=== PATIENT | female | born 1975 | race Caucasian/White ===

== ENCOUNTER → 2016-10-28 | Outpatient (CLI) | payer MEDICARE, MEDICAID ==
[~2016-10-28] MED LIST: DICL75TA PO; KEPP1TAB PO; MAGN1CAP PO; MONT10TA2 PO; NORT10CA2 PO; PENI500T PO; RANI150T PO; REGL10TA6 PO; TRAM50TA2 PO; VITATAB73 PO; ZOFR4TAB3 PO
[2016-10-28 12:23] LABS: ALBUMIN 3.7 GM/DL (3.2-5.2); ALBUMIN/GLOBULIN RATIO 1.19 (1.00-1.93); ALKALINE PHOSPHATASE 113 U/L (45-117); ALT/SGPT 44 U/L (12-78); ANION GAP 7 MEQ/L (8-16); AST/SGOT 19 U/L (15-37); BILIRUBIN,TOTAL 0.4 MG/DL (0.2-1.0); BLOOD UREA NITROGEN 15 MG/DL (7-18); CALCIUM LEVEL 8.5 MG/DL (8.5-10.1); CARBON DIOXIDE LEVEL 28 MEQ/L (21-32); CHLORIDE LEVEL 107 MEQ/L (98-107); CREATININE FOR GFR 0.67 MG/DL (0.55-1.02); GLOMERULAR FILTRATION RATE > 60.0 (>58); GLUCOSE, FASTING 87 MG/DL (70-105); POTASSIUM SERUM 3.7 MEQ/L (3.5-5.1); SODIUM LEVEL 142 MEQ/L (136-145); TOTAL PROTEIN 6.8 GM/DL (6.4-8.2)
== END ==
LOC: M LAB 11:21
PROVIDERS: ATTEND Orthopaedic Surgery
DX: Z92.29 Personal history of other drug therapy (principal)

== ENCOUNTER 2017-01-05 19:13 | Emergency (ER) | payer MEDICARE, MEDICAID ==
[~2017-01-05] VITALS: Ht 182.9 cm; Wt 113.6 kg
[2017-01-05 19:14] VITALS: BP 133/69
[2017-01-05] MEDS ORDERED: MONT10TA2 PO (19:27)
[2017-01-05] MEDS ORDERED: NORT10CA2 PO (19:27)
[2017-01-05] MEDS ORDERED: KEPP1TAB PO (19:27)
[2017-01-05] MEDS ORDERED: MAGN1CAP PO (19:27)
[2017-01-05] MEDS ORDERED: DICL75TA PO (19:27)
[2017-01-05] MEDS ORDERED: RANI150T PO (19:27)
[2017-01-05] MEDS ORDERED: VITATAB73 PO (19:27)
[2017-01-05] MEDS ORDERED: PENICILLIN V POTASSIUM 500 MG TAB PO ONE (21:30)
[2017-01-05] MEDS ORDERED: traMADol 50 MG TAB PO ONE (21:30)
[2017-01-05] MEDS ORDERED: PENI500T PO (21:33)
[2017-01-05] MEDS ORDERED: TRAM50TA2 PO (21:33)
[2017-02-27] MEDS ORDERED: ZOFR4TAB3 PO (23:35)
== END 2017-01-05 21:42 | disposition home or self-care (01) ==
LOC: M ED 19:13
DX: R59.1 Generalized enlarged lymph nodes (principal); Z87.891 Personal history of nicotine dependence; Z79.899 Other long term (current) drug therapy

== ENCOUNTER 2017-01-08 10:29 | Emergency (ER) | payer MEDICARE, MEDICAID ==
[~2017-01-08] VITALS: Ht 182.9 cm; Wt 123.4 kg
[~2017-01-08 10:29] MED LIST changes: -REGL10TA6 PO; -ZOFR4TAB3 PO
[2017-01-08] MEDS ORDERED: ONDANSETRON 4 MG ORAL DISINTEGRATING TAB (S0181) PO ONE (11:00)
[2017-01-08 11:26] LABS: BASO % 0.2 % (0.0-1.0); EOS # 0.1 K/mm3 (0.0-0.50); EOS % 1.5 % (0.0-3.0); LARGE UNSTAINED CELL # 0.1 K/mm3 (0.0-0.4); LARGE UNSTAINED CELL % 2.3 % (0.0-4.0); LYMPH # 1.4 K/mm3 (1.5-4.5); LYMPH % 24.9 % (24.0-44.0); MEAN CORPUSCULAR HEMOGLOBIN 30.3 pg (27.0-33.0); MEAN CORPUSCULAR HGB CONC 34.5 g/dl (32.0-36.5); MEAN CORPUSCULAR VOLUME 87.8 fl (80.0-96.0); MONO # 0.3 K/mm3 (0.0-0.8); NEUTROPHILS # 3.8 K/mm3 (1.8-7.7); NEUTROPHILS % 66.1 % (36.0-66.0); PLATELET COUNT, AUTOMATED 262 k/mm3 (150-450); RED CELL DISTRIBUTION WIDTH 12.6 % (11.5-14.5); WHITE BLOOD COUNT 5.8 K/mm3 (4.0-10.0)
[2017-01-08 11:54] LABS: ANION GAP 6 MEQ/L (8-16); BLOOD UREA NITROGEN 20 MG/DL (7-18); CALCIUM LEVEL 8.6 MG/DL (8.5-10.1); CARBON DIOXIDE LEVEL 28 MEQ/L (21-32); CHLORIDE LEVEL 107 MEQ/L (98-107); CREATININE FOR GFR 0.61 MG/DL (0.55-1.02); GLOMERULAR FILTRATION RATE > 60.0 (>58); GLUCOSE, FASTING 83 MG/DL (70-105); MAGNESIUM LEVEL 2.1 MG/DL (1.8-2.4); POTASSIUM SERUM 3.8 MEQ/L (3.5-5.1); SODIUM LEVEL 141 MEQ/L (136-145)
[2017-01-08] MEDS ORDERED: ZOFR4TAB3 PO (12:20)
[2017-01-08 12:31] VITALS: BP 113/72
[2017-02-27] MEDS ORDERED: ZOFR4TAB3 PO (23:35)
== END 2017-01-08 12:32 | disposition home or self-care (01) ==
LOC: M ED 10:29
DX: J02.9 Acute pharyngitis, unspecified (principal); R11.0 Nausea; Z79.899 Other long term (current) drug therapy; Z91.030 Bee allergy status; Z88.6 Allergy status to analgesic agent

== ENCOUNTER 2017-02-07 20:05 | Emergency (ER) | payer MEDICARE, MEDICAID ==
[~2017-02-07] VITALS: Ht 167.6 cm; Wt 255.0 kg
[~2017-02-07 20:05] MED LIST changes: +ZOFR4TAB3 PO
[2017-02-07] MEDS ORDERED: diphenhydrAMINE INJ 50MG/ML VIAL (J1200) IV STA (22:20)
[2017-02-07] MEDS ORDERED: METOCLOPRAMIDE INJ 10MG/2ML VIAL (J2765) IV ONE (22:30)
[2017-02-07] MEDS ORDERED: dexameTHASONE 20 MG/5 ML VIAL (J1100) IV ONE (22:30)
[2017-02-07] MEDS ORDERED: NS 1,000 ML IV ONE (22:30)
[2017-02-07] MEDS ORDERED: REGL10TA6 PO (23:40)
[2017-02-07 23:51] VITALS: BP 117/60
[2017-02-27] MEDS ORDERED: ZOFR4TAB3 PO (23:35)
== END 2017-02-07 23:58 | disposition home or self-care (01) ==
LOC: M ED 20:05
DX: G43.909 Migraine, unspecified, not intractable, without status migrainosus (principal); J45.909 Unspecified asthma, uncomplicated; F17.210 Nicotine dependence, cigarettes, uncomplicated; Z79.899 Other long term (current) drug therapy; Z88.8 Allergy status to other drugs, medicaments and biological substances; Z88.5 Allergy status to narcotic agent; Z91.030 Bee allergy status
CPT/HCPCS: 96374; 96375; 99283; J1100; J1200; J2765

== ENCOUNTER → 2017-03-17 | Outpatient (CLI) | payer MEDICARE, MEDICAID ==
[~2017-03-17] MED LIST changes: +REGL10TA6 PO
--- NOTE | 2017-03-17 08:32 | REP ---
Clinical: Right upper quadrant abdominal pain. Technique: Mitchell scale ultrasound using curved array transducer. Findings: The liver and pancreas are normal in contour, size, and echogenicity without focal hepatic or pancreatic lesions identified. The patient is status post cholecystectomy. Compensatory dilatation of the common bile duct measures 9.5 mm without evidence for intrahepatic biliary ductal dilatation. The right kidney is normal in reniform shape without hydronephrosis and measures 12.9 x 6.0 x 4.5 cm. No ascites. Visualized portions of the abdominal aorta normal. Impression: Prior cholecystectomy. No significant biliary ductal dilatation. Right kidney, liver and pancreas are normal. Signed by Faustino Mcgregor MD 03/17/2017 08:23 A
== END ==
LOC: M RAD 06:40
PROVIDERS: ATTEND Internal Medicine
DX: R10.9 Unspecified abdominal pain (principal)

== ENCOUNTER → 2017-05-29 | Outpatient (CLI) | payer MEDICARE, MEDICAID | LOC: M RAD 15:36 | DX: N83.201 Unspecified ovarian cyst, right side (principal); N94.6 Dysmenorrhea, unspecified | CPT/HCPCS: 76856 ==

== ENCOUNTER 2017-06-02 16:43 | Emergency (ER) | payer MEDICARE, MEDICAID ==
[2017-06-02] MEDS: IBUPROFEN 600 MG TAB PO (22:08)
[2017-06-02] MEDS: METHOCARBAMOL 500 MG TAB PO (22:08)
== END 2017-06-02 22:09 | disposition home or self-care (01) ==
LOC: M ED 16:43
DX: M62.830 Muscle spasm of back (principal); K21.9 Gastro-esophageal reflux disease without esophagitis; Z88.8 Allergy status to other drugs, medicaments and biological substances; Z88.5 Allergy status to narcotic agent; Z91.030 Bee allergy status; Z86.69 Personal history of other diseases of the nervous system and sense organs; Z98.890 Other specified postprocedural states
CPT/HCPCS: 99283

== ENCOUNTER 2017-07-28 15:53 | Emergency (ER) | payer MEDICARE, MEDICAID ==
[2017-07-28] MEDS: IBUPROFEN 600 MG TAB PO (19:10)
== END 2017-07-28 19:11 | disposition home or self-care (01) ==
LOC: M ED 15:53
DX: H65.03 Acute serous otitis media, bilateral (principal); G43.909 Migraine, unspecified, not intractable, without status migrainosus; J45.909 Unspecified asthma, uncomplicated; K21.9 Gastro-esophageal reflux disease without esophagitis; Z79.899 Other long term (current) drug therapy; Z91.013 Allergy to seafood; Z88.6 Allergy status to analgesic agent; Z88.5 Allergy status to narcotic agent
CPT/HCPCS: 99283

== ENCOUNTER 2017-08-28 07:58 | Day surgery (SDC) | payer MEDICARE, MEDICAID ==
[~2017-08-28 07:58] MED LIST changes: -DICL75TA PO; -KEPP1TAB PO; -MAGN1CAP PO; -MONT10TA2 PO; -NORT10CA2 PO; -PENI500T PO; +PROPOFOL 200 MG/20 ML VIAL As Ordered; -RANI150T PO; -REGL10TA6 PO; -TRAM50TA2 PO; -VITATAB73 PO; -ZOFR4TAB3 PO
[2017-08-28] MEDS: NS 1,000 ML IV (08:15)
[2017-08-28] MEDS ORDERED: PROPOFOL 200 MG/20 ML VIAL As Ordered (09:05)
== END 2017-08-28 09:52 | disposition home or self-care (01) ==
LOC: M OPP 07:58
DX: R12 Heartburn (principal); K22.8 Other specified diseases of esophagus; K44.9 Diaphragmatic hernia without obstruction or gangrene; K31.89 Other diseases of stomach and duodenum; K21.9 Gastro-esophageal reflux disease without esophagitis; G43.909 Migraine, unspecified, not intractable, without status migrainosus; G40.909 Epilepsy, unspecified, not intractable, without status epilepticus; J45.909 Unspecified asthma, uncomplicated; Z88.8 Allergy status to other drugs, medicaments and biological substances; Z91.030 Bee allergy status; Z79.899 Other long term (current) drug therapy; Z87.891 Personal history of nicotine dependence; Z80.49 Family history of malignant neoplasm of other genital organs
CPT/HCPCS: 43239

== ENCOUNTER → 2017-09-15 | Outpatient (CLI) | payer MEDICARE, MEDICAID | LOC: M RAD 17:48 | DX: N83.201 Unspecified ovarian cyst, right side (principal); R93.8 Abnormal findings on diagnostic imaging of other specified body structures; N85.00 Endometrial hyperplasia, unspecified | CPT/HCPCS: 76856 ==

== ENCOUNTER → 2017-09-15 | Outpatient (CLI) | payer MEDICARE, MEDICAID ==
[2017-09-15 13:32] LABS: ALBUMIN 3.7 GM/DL (3.2-5.2); ALBUMIN/GLOBULIN RATIO 1.09 (1.00-1.93); ALKALINE PHOSPHATASE 96 U/L (45-117); ALT/SGPT 37 U/L (12-78); ANION GAP 6 MEQ/L (8-16); AST/SGOT 21 U/L (7-37); BILIRUBIN,DIRECT 0.1 MG/DL (0.0-0.2); BILIRUBIN,TOTAL 0.3 MG/DL (0.2-1.0); BLOOD UREA NITROGEN 13 MG/DL (7-18); CALCIUM LEVEL 8.6 MG/DL (8.5-10.1); CARBON DIOXIDE LEVEL 28 MEQ/L (21-32); CHLORIDE LEVEL 108 MEQ/L (98-107); CREATININE FOR GFR 0.74 MG/DL (0.55-1.30); GLOMERULAR FILTRATION RATE > 60.0 (>58); GLUCOSE, FASTING 86 MG/DL (70-100); POTASSIUM SERUM 4.1 MEQ/L (3.5-5.1); SODIUM LEVEL 142 MEQ/L (136-145); TOTAL PROTEIN 7.1 GM/DL (6.4-8.2)
== END ==
LOC: M LAB 11:46
DX: Z92.29 Personal history of other drug therapy (principal)
CPT/HCPCS: 80076

== ENCOUNTER 2018-01-13 14:19 | Emergency (ER) | payer MEDICARE, MEDICAID ==
[2018-01-13] MEDS: ACETAMINOPHEN 325 MG TAB PO (16:18)
[2018-01-13] MEDS: AZITHROMYCIN 250 MG TAB PO (16:18)
== END 2018-01-13 16:36 | disposition home or self-care (01) ==
LOC: M ED 14:19
DX: J20.9 Acute bronchitis, unspecified (principal); J06.9 Acute upper respiratory infection, unspecified; J45.909 Unspecified asthma, uncomplicated; K21.9 Gastro-esophageal reflux disease without esophagitis; Z88.8 Allergy status to other drugs, medicaments and biological substances; Z88.5 Allergy status to narcotic agent; Z91.030 Bee allergy status
CPT/HCPCS: 99283

== ENCOUNTER → 2018-01-27 | Outpatient (CLI) | payer MEDICARE, MEDICAID | LOC: M RAD 13:40 | DX: N83.01 Follicular cyst of right ovary (principal) | CPT/HCPCS: 76856 ==

== ENCOUNTER 2018-02-16 17:54 | Emergency (ER) | payer MEDICARE, MEDICAID ==
[2018-02-16 15:46] LABS: BASO % 0.3 % (0.0-1.0); EOS # 0.1 10^3/uL (0.0-0.50); EOS % 0.8 % (0.0-3.0); HEMATOCRIT 34.3 % (36.0-47.0); HEMOGLOBIN 11.5 g/dl (12.0-15.5); IMMATURE GRANULOCYTE % 0.2 % (0-3.0); LYMPH # 2.1 10^3/uL (1.5-4.5); LYMPH % 23.9 % (24.0-44.0); MEAN CORPUSCULAR HEMOGLOBIN 29.4 pg (27.0-33.0); MEAN CORPUSCULAR HGB CONC 33.5 g/dl (32.0-36.5); MEAN CORPUSCULAR VOLUME 87.7 fl (80.0-96.0); MONO # 0.4 10^3/uL (0.0-0.8); MONO % 4.2 % (0.0-5.0); NEUTROPHILS # 6.1 10^3/uL (1.8-7.7); NEUTROPHILS % 70.6 % (36.0-66.0); PLATELET COUNT, AUTOMATED 308 10^3/uL (150-450); RED BLOOD COUNT 3.91 10^6/uL (4.00-5.40); WHITE BLOOD COUNT 8.7 10^3/uL (4.0-10.0)
[2018-02-16 16:25] LABS: CPK CREATINE PHOSPHOKINASE 84 U/L (26-192)
[2018-02-16 16:26] LABS: BLOOD UREA NITROGEN 17 MG/DL (7-18); CALCIUM LEVEL 9.1 MG/DL (8.5-10.1); CARBON DIOXIDE LEVEL 25 MEQ/L (21-32); CHLORIDE LEVEL 108 MEQ/L (98-107); CK-MB VALUE MASS < 1.0 NG/ML (<3.6); CREATININE FOR GFR 0.94 MG/DL (0.55-1.30); GLOMERULAR FILTRATION RATE > 60.0 (>58); GLUCOSE, FASTING 116 MG/DL (70-100); POTASSIUM SERUM 3.8 MEQ/L (3.5-5.1); SODIUM LEVEL 142 MEQ/L (136-145); TROPONIN I < 0.02 NG/ML (< 0.10)
[2018-02-16 16:27] LABS: ANION GAP 9 MEQ/L (8-16)
[2018-02-16 16:34] LABS: D-DIMER QUANT 1114.2 ng/ml (<500)
[2018-02-16] MEDS: NORCO, ANEXSIA 5/325MG TABLET (HYDROcodone/ACETAMINOPHEN) PO ×2 (17:07)
[~2018-02-16 17:54] MED LIST changes: +ISOVUE-370 76% 100ML VIAL (Q9967) As Ordered; -PROPOFOL 200 MG/20 ML VIAL As Ordered
== END 2018-02-16 18:05 | disposition home or self-care (01) ==
LOC: M ED 17:54
DX: R07.89 Other chest pain (principal)
CPT/HCPCS: Q9967

== ENCOUNTER 2018-03-27 16:28 | Emergency (ER) | payer MEDICARE, MEDICAID | END 2018-03-27 18:32 | disposition home or self-care (01) | LOC: M ED 16:28 | DX: J20.8 Acute bronchitis due to other specified organisms (principal); J45.909 Unspecified asthma, uncomplicated; K21.9 Gastro-esophageal reflux disease without esophagitis; G43.909 Migraine, unspecified, not intractable, without status migrainosus; Z91.030 Bee allergy status; Z88.5 Allergy status to narcotic agent; Z88.8 Allergy status to other drugs, medicaments and biological substances; Z79.899 Other long term (current) drug therapy | CPT/HCPCS: 87880 ==

== ENCOUNTER → 2018-09-08 | Outpatient (CLI) | payer MEDICARE, MEDICAID ==
[~2018-09-08] MED LIST changes: +CLAR1TAB2 PO; +DICL75TA PO; +ETHY1TAB; +IBUP-1022 PO; -ISOVUE-370 76% 100ML VIAL (Q9967) As Ordered; +KEPP1TAB PO; +MAGN1CAP PO; +MONT10TA2 PO; +NASA10TA2 PO; +NORT10CA2 PO; +PENI500T PO; +RANI150T PO; +REGL10TA6 PO; +ROBA500T PO; +TESS100C PO; +TRAM50TA2 PO; +VENTAER INH; +VITATAB73 PO; +ZITHTAB PO; +ZOFR4TAB14 PO
[2018-09-08 13:13] LABS: ALBUMIN 3.7 GM/DL (3.2-5.2); ALT/SGPT 27 U/L (12-78); BILIRUBIN,TOTAL 0.5 MG/DL (0.2-1.0); BLOOD UREA NITROGEN 16 MG/DL (7-18); CARBON DIOXIDE LEVEL 28 MEQ/L (21-32); CHLORIDE LEVEL 108 MEQ/L (98-107); GLOMERULAR FILTRATION RATE > 60.0 (>58); GLUCOSE, FASTING 90 MG/DL (70-100); POTASSIUM SERUM 3.9 MEQ/L (3.5-5.1); SODIUM LEVEL 141 MEQ/L (136-145); TOTAL PROTEIN 6.5 GM/DL (6.4-8.2)
== END ==
LOC: M LAB 12:03
PROVIDERS: ATTEND Nurse Practitioner Adult Health
DX: Z79.899 Other long term (current) drug therapy (principal); M17.0 Bilateral primary osteoarthritis of knee

== ENCOUNTER 2018-10-16 11:55 | Emergency (ER) | payer MEDICARE, MEDICAID ==
[~2018-10-16] VITALS: Ht 182.9 cm; Wt 102.7 kg
[2018-10-16] MEDS ORDERED: VITA500C24 PO (12:06)
[2018-10-16] MEDS ORDERED: METOCLOPRAMIDE INJ 10MG/2ML VIAL (J2765) IV ONE (13:00)
[2018-10-16] MEDS ORDERED: NS 1,000 ML IV ONE (13:00)
[2018-10-16] MEDS ORDERED: diphenhydrAMINE INJ 50MG/ML VIAL (J1200) IV ONE (13:00)
[2018-10-16] MEDS ORDERED: ACETAMINOPHEN 500 MG TAB PO ONE (13:00)
--- NOTE | 2018-10-16 14:38 | REP ---
CT of the brain without IV contrast: Comparison is 02/27/2017. Studies performed for migraine headache. There is no hemorrhage. There is no edema, mass effect or midline shift. Cortical stripe is unremarkable. Ventricles are normal size and midline. There is mucosal thickening and a small air-fluid level in the right sphenoid sinus. There is a small air-fluid level in the left sphenoid sinus. This is compatible with sinusitis. The visualized sinuses are otherwise unremarkable. Impression: There are findings compatible with sphenoid sinusitis. Otherwise, negative CT of the brain. Electronically Signed by Francois Rodríguez MD 10/16/2018 02:30 P
[2018-10-16] MEDS ORDERED: AUGM875T28 PO (15:16)
[2018-10-16 15:25] VITALS: BP 124/72
== END 2018-10-16 15:26 | disposition home or self-care (01) ==
LOC: M ED 11:55
DX: G43.909 Migraine, unspecified, not intractable, without status migrainosus (principal); J32.3 Chronic sphenoidal sinusitis; J45.909 Unspecified asthma, uncomplicated; G40.909 Epilepsy, unspecified, not intractable, without status epilepticus; I49.9 Cardiac arrhythmia, unspecified; K21.9 Gastro-esophageal reflux disease without esophagitis; Z79.899 Other long term (current) drug therapy; Z88.1 Allergy status to other antibiotic agents; Z88.5 Allergy status to narcotic agent; Z88.8 Allergy status to other drugs, medicaments and biological substances; Z91.030 Bee allergy status
CPT/HCPCS: 70450; 80180; 84702; 96361; 96374; 96375; 99284; J1200; J2765

== ENCOUNTER → 2018-11-03 | Outpatient (CLI) | payer MEDICARE, MEDICAID ==
[~2018-11-03] MED LIST changes: +AUGM875T28 PO; +VITA500C24 PO
--- NOTE | 2018-11-03 10:02 | REP ---
RIGHT UPPER QUADRANT SONOGRAPHY: HISTORY: Elevated LFTs. FINDINGS: Scanning through the right upper quadrant of the abdomen shows no focal liver lesion. Common bile duct is normal post cholecystectomy measured at 0.6 cm. There is no evidence of ascites. No pancreatic abnormality is seen. No right renal abnormality is noted. The right kidney measures 12.4 x 5.6 x 3.8 cm. IMPRESSION: Unremarkable right upper quadrant sonography post cholecystectomy. Electronically Signed by Giovany Woodward MD 11/03/2018 10:43 A
== END ==
LOC: M RAD 07:29
DX: R74.0 Nonspecific elevation of levels of transaminase and lactic acid dehydrogenase [LDH] (principal)

== ENCOUNTER 2019-01-15 15:51 | Emergency (ER) | payer MEDICARE, MEDICAID ==
[~2019-01-15] VITALS: Ht 182.9 cm; Wt 102.9 kg
[2019-01-15] MEDS ORDERED: NS 1,000 ML IV ONE (16:30)
[2019-01-15] MEDS ORDERED: dexameTHASONE 20 MG/5 ML VIAL (J1100) IV ONE (16:30)
[2019-01-15] MEDS ORDERED: ACETAMINOPHEN 325 MG TAB PO ONE (16:30)
[2019-01-15] MEDS ORDERED: diphenhydrAMINE INJ 50MG/ML VIAL (J1200) IV ONE (16:30)
[2019-01-15] MEDS ORDERED: SUMA50TA2 (17:16)
[2019-01-15] MEDS ORDERED: PROP20TA72 (17:16)
[2019-01-15] MEDS ORDERED: KELN1TAB (17:16)
[2019-01-15] MEDS ORDERED: DICL75TA (17:16)
[2019-01-15] MEDS ORDERED: VALPROATE SOD INJ 1,000 MG in D5W 50 ML IV ONE (18:15)
[2019-01-15 19:23] VITALS: BP 116/62
== END 2019-01-15 19:39 | disposition home or self-care (01) ==
LOC: M ED 15:51
DX: G43.811 Other migraine, intractable, with status migrainosus (principal); J45.909 Unspecified asthma, uncomplicated; R56.9 Unspecified convulsions; K21.9 Gastro-esophageal reflux disease without esophagitis; Z79.899 Other long term (current) drug therapy; Z79.3 Long term (current) use of hormonal contraceptives; Z88.8 Allergy status to other drugs, medicaments and biological substances; Z88.1 Allergy status to other antibiotic agents; Z88.5 Allergy status to narcotic agent; Z91.030 Bee allergy status
CPT/HCPCS: 96361; 96374; 96375; 99284; J1100; J1200

== ENCOUNTER 2019-04-21 15:35 | Emergency (ER) | payer MEDICARE, MEDICAID ==
[~2019-04-21] VITALS: Ht 182.9 cm; Wt 94.5 kg
[~2019-04-21 15:35] MED LIST changes: -CIPR-249 PO
[2019-04-21] MEDS ORDERED: CIPR-249 PO (17:21)
[2019-04-21 17:55] VITALS: BP 131/69
== END 2019-04-21 17:56 | disposition home or self-care (01) ==
LOC: M ED 15:35
DX: N39.0 Urinary tract infection, site not specified (principal); K21.9 Gastro-esophageal reflux disease without esophagitis; J45.909 Unspecified asthma, uncomplicated; Z79.899 Other long term (current) drug therapy; Z88.1 Allergy status to other antibiotic agents; Z88.8 Allergy status to other drugs, medicaments and biological substances; Z91.030 Bee allergy status

== ENCOUNTER → 2019-04-21 | Outpatient (CLI) | payer MEDICARE, MEDICAID ==
[~2019-04-21] MED LIST changes: +CIPR-249 PO; +DICL75TA; +KELN1TAB; +PROP20TA72; +SUMA50TA2
== END ==
LOC: M LAB 14:57
PROVIDERS: ATTEND Psychiatry & Neurology Neurology
DX: G40.309 Generalized idiopathic epilepsy and epileptic syndromes, not intractable, without status epilepticus (principal)

== ENCOUNTER 2019-05-01 12:06 | Emergency (ER) | payer MEDICARE, MEDICAID ==
[~2019-05-01] VITALS: Ht 182.9 cm; Wt 105.9 kg
[~2019-05-01 12:06] MED LIST changes: +CIPR-249 PO
[2019-05-01 12:51] LABS: IONIZED CALCIUM 4.6 MG/DL (4.5-5.3)
[2019-05-01 12:58] LABS: BASO # 0.1 10^3/uL (0.0-0.2); BASO % 0.8 % (0.0-1.0); EOS # 0.1 10^3/uL (0.0-0.5); EOS % 1.4 % (0.0-3.0); HEMATOCRIT 31.2 % (36.0-47.0); HEMOGLOBIN 10.5 g/dl (12.0-15.5); LYMPH # 1.3 10^3/uL (1.5-5.0); MEAN CORPUSCULAR HEMOGLOBIN 29.9 pg (27.0-33.0); MEAN CORPUSCULAR HGB CONC 33.7 g/dl (32.0-36.5); MEAN CORPUSCULAR VOLUME 88.9 fl (80.0-96.0); MONO # 0.3 10^3/uL (0.0-0.8); MONO % 5.3 % (0.0-5.0); NEUTROPHILS # 4.7 10^3/uL (1.5-8.5); NEUTROPHILS % 72.3 % (36.0-66.0); PLATELET COUNT, AUTOMATED 242 10^3/uL (150-450); RED BLOOD COUNT 3.51 10^6/uL (4.00-5.40); WHITE BLOOD COUNT 6.5 10^3/uL (4.0-10.0)
[2019-05-01] MEDS ORDERED: ADACEL/BOOSTRIX VACCINE (DIPHTH/PERTUSS/ACELL/TETANUS)0.5ML SYR (90715) IM ONE (13:15)
[2019-05-01 13:20] LABS: ALBUMIN 3.4 GM/DL (3.2-5.2); ALT/SGPT 28 U/L (12-78); BILIRUBIN,DIRECT 0.1 MG/DL (0.0-0.2); BILIRUBIN,TOTAL 0.3 MG/DL (0.2-1.0); BLOOD UREA NITROGEN 19 MG/DL (7-18); CALCIUM LEVEL 8.7 MG/DL (8.5-10.1); CARBON DIOXIDE LEVEL 23 MEQ/L (21-32); CHLORIDE LEVEL 107 MEQ/L (98-107); CREATININE FOR GFR 0.81 MG/DL (0.55-1.30); GLOMERULAR FILTRATION RATE > 60.0 (>58); GLUCOSE, FASTING 77 MG/DL (70-100); MAGNESIUM LEVEL 2.2 MG/DL (1.8-2.4); PHOSPHORUS LEVEL 2.6 MG/DL (2.5-4.9); POTASSIUM SERUM 4.4 MEQ/L (3.5-5.1); SODIUM LEVEL 139 MEQ/L (136-145); TOTAL PROTEIN 6.5 GM/DL (6.4-8.2)
--- NOTE | 2019-05-01 13:46 | REP ---
CT BRAIN WITHOUT CONTRAST: HISTORY: Trauma. Seizure. No comparison study. FINDINGS: Preliminary digital inspector motor vehicles radiograph is unremarkable. The maxilla is edentulous. No skull fracture is visible on bone window images. Visualized paranasal sinuses are clear. There is a left frontal scalp hematoma. No skull fracture. There is no evidence of intracranial hemorrhage. Lateral, third, fourth ventricles are normal in size and position. Mitchell-white differentiation pattern is intact. IMPRESSION: Left frontal scalp hematoma. No skull fracture or intracranial injury. Electronically Signed by Giovany Woodward MD 05/01/2019 02:01 P
--- NOTE | 2019-05-01 13:47 | REP ---
CHEST X-RAY: Two views. HISTORY: Syncope versus seizure. COMPARISON CHEST X-RAY: February 16, 2018. FINDINGS: EKG monitoring electrodes overlie the chest. The lungs are well inflated and clear. Pleural angles are sharp. Heart size is normal. Pulmonary vasculature is not increased. No significant bony abnormality. IMPRESSION: Negative chest radiographs. Electronically Signed by Giovany Woodward MD 05/01/2019 02:01 P
--- NOTE | 2019-05-01 13:47 | REP ---
CT STUDY OF THE CERVICAL SPINE WITHOUT CONTRAST: HISTORY: Trauma, seizure. TECHNIQUE: Helical scanning is acquired and overlapping 2 mm high resolution axial images were generated and reviewed at bone and soft tissue window settings. Coronal and sagittal multiplanar re-formations images are generated. CT FINDINGS: C3-4 through C6-7 disc levels. There is no evidence of cervical spine element fracture. No skull base fracture is seen. Cervical vertebral body heights are preserved. Alignment is normal. Facet joints are normally aligned bilaterally at each cervical level on multiplanar re-formations images. There is no evidence of intraspinal or paraspinal hematoma. No extra vertebral abnormality is seen. IMPRESSION: Mild degenerative spondylosis changes. Otherwise negative CT study of the cervical spine without contrast. No fracture seen. Unreviewed
[2019-05-01] MEDS ORDERED: NS 1,000 ML IV SCH (13:51)
[2019-05-01 15:02] LABS: AMPHETAMINES LEVEL URINE NEGATIVE (NEGATIVE); BARBITURATES URINE NEGATIVE (NEGATIVE); BENZODIAZEPINES URINE NEGATIVE (NEGATIVE); CANNABINOIDS URINE NEGATIVE (NEGATIVE); COCAINE METABOLITE URINE NEGATIVE (NEGATIVE); METHADONE URINE NEGATIVE (NEGATIVE); OPIATES URINE NEGATIVE (NEGATIVE); PHENCYCLIDINE URINE NEGATIVE (NEGATIVE)
[2019-05-01] MEDS ORDERED: KEFL500C17 PO (17:10)
[2019-05-01] MEDS ORDERED: CEPHALEXIN 500 MG CAP PO ONE (17:15)
[2019-05-01 17:41] VITALS: BP 121/61
--- NOTE | 2019-05-01 21:20 | ECGEPIP ---
[facility] - ED Test Date: 2019-05-01 Pat Name: EVA KEYES Department: Room: - Gender: Female [employer] Operator: YULY : 1975 Requested By: MARY Gordon Order Number: [id number] Reading MD: Austen Ceja Measurements Intervals [place] Rate: 67 P: -2 OK: 154 QRS: 9 QRSD: 98 T: 5 QT: 381 QTc: 404 Interpretive Statements SINUS RHYTHM NSTTW ABNORMALITIES SIMILAR TO 02/16/18 Electronically Signed on 05-01-2019 21:20:08 EST by Austen Ceja
== END 2019-05-01 17:46 | disposition home or self-care (01) ==
LOC: EDBD 12:06 → M ED 12:06
DX: G40.909 Epilepsy, unspecified, not intractable, without status epilepticus (principal); S00.83XA Contusion of other part of head, initial encounter; X50.1XXA Overexertion from prolonged static or awkward postures, initial encounter; Y92.89 Other specified places as the place of occurrence of the external cause; N39.0 Urinary tract infection, site not specified; K21.9 Gastro-esophageal reflux disease without esophagitis; G43.909 Migraine, unspecified, not intractable, without status migrainosus; Z79.899 Other long term (current) drug therapy; Z88.8 Allergy status to other drugs, medicaments and biological substances; Z88.1 Allergy status to other antibiotic agents; Z88.5 Allergy status to narcotic agent; Z91.030 Bee allergy status; Z23 Encounter for immunization

== ENCOUNTER 2020-03-18 17:26 | Inpatient (IN) | payer MEDICARE, MEDICAID ==
[~2020-03-18] VITALS: Ht 182.9 cm; Wt 121.7 kg
[~2020-03-18 17:26] MED LIST changes: +KEFL500C17 PO; -MONT10TA2 PO; +MONT10TA4 PO
[2020-03-18] MEDS ORDERED: NS 1,000 ML IV ONE (18:15)
[2020-03-18] MEDS ORDERED: ESOM40CA35 PO (18:27)
[2020-03-18] MEDS ORDERED: CVS5000S2 PO (18:27)
[2020-03-18] MEDS ORDERED: KELN1TAB PO (18:27)
[2020-03-18] MEDS ORDERED: RA M500C PO (18:27)
[2020-03-18] MEDS ORDERED: DICL50TAB PO (18:27)
[2020-03-18] MEDS ORDERED: PROP20TA72 PO (18:27)
[2020-03-18] MEDS ORDERED: TRAZ-252 PO (18:27)
[2020-03-18] MEDS ORDERED: ALBU8.5H PO (18:27)
[2020-03-18] MEDS ORDERED: MONT10TA4 PO (18:27)
[2020-03-18] MEDS ORDERED: KEPP1TAB PO (18:27)
[2020-03-18] MEDS ORDERED: VITA-158 PO (18:27)
[2020-03-18 18:31] LABS: BASO % 0.4 % (0.0-1.0); EOS # 0.1 10^3/uL (0.0-0.5); EOS % 1.3 % (0.0-3.0); HEMATOCRIT 34.9 % (36.0-47.0); HEMOGLOBIN 11.1 g/dl (12.0-15.5); LYMPH # 1.5 10^3/uL (1.5-5.0); LYMPH % 19.4 % (24.0-44.0); MEAN CORPUSCULAR HEMOGLOBIN 28.8 pg (27.0-33.0); MEAN CORPUSCULAR HGB CONC 31.8 g/dl (32.0-36.5); MEAN CORPUSCULAR VOLUME 90.6 fl (80.0-96.0); MONO # 0.4 10^3/uL (0.0-0.8); MONO % 4.5 % (0.0-5.0); NEUTROPHILS # 5.7 10^3/uL (1.5-8.5); NEUTROPHILS % 74.1 % (36.0-66.0); PLATELET COUNT, AUTOMATED 282 10^3/uL (150-450); RED BLOOD COUNT 3.85 10^6/uL (4.00-5.40); WHITE BLOOD COUNT 7.7 10^3/uL (4.0-10.0)
[2020-03-18 18:56] LABS: HCG, SERUM QUALITATIVE NEGATIVE (NEGATIVE)
[2020-03-18 19:00] LABS: ACETAMINOPHEN LEVEL < 2.0 UG/ML (10.0-30.0); BLOOD UREA NITROGEN 18 MG/DL (7-18); CALCIUM LEVEL 8.7 MG/DL (8.5-10.1); CARBON DIOXIDE LEVEL 27 MEQ/L (21-32); CHLORIDE LEVEL 108 MEQ/L (98-107); CK-MB VALUE MASS < 1.0 NG/ML (<3.6); CPK CREATINE PHOSPHOKINASE 68 U/L (26-192); CREATININE FOR GFR 0.94 MG/DL (0.55-1.30); ETHYL ALCOHOL (ETHANOL) < 0.003 % (0.000-0.010); GLOMERULAR FILTRATION RATE > 60.0 (>58); GLUCOSE, FASTING 101 MG/DL (70-100); MAGNESIUM LEVEL 2.2 MG/DL (1.8-2.4); MB/CK RELATIVE INDEX 1.47 (< OR =4); POTASSIUM SERUM 3.9 MEQ/L (3.5-5.1); SALICYLATE LEVEL 1.8 MG/DL (5.0-30.0); SODIUM LEVEL 140 MEQ/L (136-145); TROPONIN I < 0.02 NG/ML (< 0.10)
--- NOTE | 2020-03-18 20:09 | ECGEPIP ---
[facility] - ED Test Date: 2020-03-18 Pat Name: EVA KEYES Department: Room: - Gender: Female Supervisor Rides: julian : 1975 Requested By: KAROLINE GRIFFITH Order Number: [id number] Reading MD: James King Measurements Intervals [place] Rate: 73 P: 25 HI: 171 QRS: 12 QRSD: 105 T: 5 QT: 388 QTc: 428 Interpretive Statements SINUS RHYTHM NONSPECIFIC ST T WAVE CHANGES CW 05/01/[address] T WAVE CHANGES Electronically Signed on 03-18-2020 20:08:44 EST by James King
[2020-03-18 20:14] LABS: AMPHETAMINES LEVEL URINE NEGATIVE (NEGATIVE); BARBITURATES URINE NEGATIVE (NEGATIVE); BENZODIAZEPINES URINE NEGATIVE (NEGATIVE); CANNABINOIDS URINE NEGATIVE (NEGATIVE); COCAINE METABOLITE URINE NEGATIVE (NEGATIVE); METHADONE URINE NEGATIVE (NEGATIVE); OPIATES URINE NEGATIVE (NEGATIVE); PHENCYCLIDINE URINE NEGATIVE (NEGATIVE)
--- NOTE | 2020-03-18 20:59 | REPVR ---
PROCEDURE INFORMATION: Exam: CT Head Without Contrast Exam date and time: 03/18/2020 8:36 PM Age: 44 years old Clinical indication: Pain; Headache; Additional info: Syncope TECHNIQUE: Imaging protocol: Computed tomography of the head without contrast. Radiation optimization: All CT scans at this facility use at least one of these dose optimization techniques: automated exposure control; mA and/or kV adjustment per patient size (includes targeted exams where dose is matched to clinical indication); or iterative reconstruction. COMPARISON: CT Head without contrast 05/01/2019 1:17 PM FINDINGS: Brain: No intracranial hemorrhage or extra-axial fluid collection. No evidence of mass effect or midline shift. Mitchell-white matter differentiation is intact. Cerebral ventricles: No ventriculomegaly. Bones/joints: No acute osseus lesion or fracture. Paranasal sinuses: Visualized sinuses are unremarkable. No fluid levels. Mastoid air cells: Unremarkable. Soft tissues: Unremarkable. IMPRESSION: No acute intracranial pathology. Electronically signed by: Dean Jaramillo On 03/18/2020 20:59:21 PM
[2020-03-18] MEDS ORDERED: diazePAM 10MG/2ML SYRINGE (J3360 PER 5MG) IV ONE (21:30)
[2020-03-18] MEDS ORDERED: SUMA50TA2 PO (22:05)
[2020-03-18] MEDS ORDERED: NORT25CA2 PO (22:10)
[2020-03-18] MEDS ORDERED: MAGN400T3 PO (22:10)
--- NOTE | 2020-03-18 23:54 | REPVR ---
PROCEDURE INFORMATION: Exam: MR Head Without Contrast Exam date and time: 03/18/2020 11:34 PM Age: 44 years old Clinical indication: Pain; Headache; Cluster; Patient HX: Dizziness. History of seizures; Additional info: Intractable dizziness TECHNIQUE: Imaging protocol: MR of the head without contrast. COMPARISON: CT Head without contrast 03/18/2020 8:32 PM FINDINGS: Brain: Scattered nonspecific T2/FLAIR hyperintensities of the periventricular and deep subcortical white matter. No intracranial hemorrhage or extra-axial fluid collection. No evidence of mass effect or midline shift. No restricted diffusion to suggest acute infarct. Cerebral ventricles: No ventriculomegaly. Bones/joints: Unremarkable. Paranasal sinuses: Mild mucosal thickening of the right sphenoid sinus. Mastoid air cells: No mastoid effusion. Orbits: Unremarkable. Soft tissues: Unremarkable. IMPRESSION: 1. Scattered nonspecific T2/FLAIR hyperintensities of the periventricular and deep subcortical white matter. Differential includes but is not limited to sequela of chronic small vessel ischemic change versus demyelinating disease such as multiple sclerosis. Recommend neurology consultation. 2. No MR evidence of acute infarct. Electronically signed by: Dean Jaramillo On 03/18/2020 23:54:00 PM
--- NOTE | 2020-03-18 23:55 | REPVR ---
PROCEDURE INFORMATION: Exam: MR Angiogram Head Without Contrast, Arteries Exam date and time: 03/18/2020 11:34 PM Age: 44 years old Clinical indication: Pain; Headache; Patient HX: Dizziness. History of seizures; Additional info: Intractable dizziness TECHNIQUE: Imaging protocol: MR angiogram head without contrast. Exam focused on the arteries. 3D rendering (Not supervised by radiologist): MIP and/or 3D reconstructed images were created by the technologist. COMPARISON: CT Head without contrast 03/18/2020 8:32 PM FINDINGS: ANTERIOR CIRCULATION: Right internal carotid artery: Intracranial segment is patent with no significant stenosis. No aneurysm. Right middle cerebral artery: No occlusion or significant stenosis. No aneurysm. Right anterior cerebral artery: No occlusion or significant stenosis. No aneurysm. Left internal carotid artery: Intracranial segment is patent with no significant stenosis. No aneurysm. Left middle cerebral artery: No occlusion or significant stenosis. No aneurysm. Left anterior cerebral artery: No occlusion or significant stenosis. No aneurysm. POSTERIOR CIRCULATION: Right vertebral artery: No occlusion or significant stenosis. No aneurysm. Left vertebral artery: No occlusion or significant stenosis. No aneurysm. Basilar artery: No occlusion or significant stenosis. No aneurysm. Right posterior cerebral artery: No occlusion or significant stenosis. No aneurysm. Left posterior cerebral artery: No occlusion or significant stenosis. No aneurysm. IMPRESSION: No MRA evidence of intracranial arterial occlusion or significant stenosis. Electronically signed by: Dean Jaramillo On 03/18/2020 23:55:19 PM
--- NOTE | 2020-03-19 00:27 | HPEPDOC ---
[facility] Medical History & Physical Date of Admission Mar 19, 2020 Date of Service: Mar 19, 2020 Attending Physician: MALIK BONNER MD History and Physical TIME OF SERVICE: 1235am CHIEF COMPLAINT: Dizziness HISTORY OF PRESENT ILLNESS: This 44 year-old female resented with complaints of a couple episodes of feeling dizzy & weak for the last 3 days. Yesterday while she was at work. Her symptoms got worse. She had one episode in particular where she was trying to walk and ended up leading to the left side. She had another episode while standing in the bathroom stall, which resulted in her having fecal and urinary incontinence; he was able to catch herself and avoid falling. She is not sure if she feels like the ground was moving beneath her when the episodes occur, she denies ringing in her ears, denies having blurry vision, denies falling, denies losing consciousness, and denies dropping any objects. She has never had episodes of dizziness in the past and added that these episodes are different from her seizures. She was instructed to come to the hospital by her her Neurologist in [facility]. 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 HOME MEDICATIONS: Please see below. PHYSICAL EXAMINATION: Vital Signs Date Time Temp Pulse Resp B/P (MAP) Pulse Ox O2 Delivery O2 Flow Rate FiO2 03/18/20 17:27 96.9 103 20 149/81 (103) 99 Room Air GEN: well-nourished / well developed/ appears chronically ill INTEGUMENT: not flushed/ not jaundice / has generalized pallor HEENT: lips acyanotic /mucus membranes moist and pink / sclera anicteric CVS: RRR/NMRG/ radial pulses intact / no lower extremity edema LUNGS: able to speak full sentences without stopping to take a breath / no coughing / lungs are clear to auscultation bilaterally on room air ABDOMEN: Contour (flat) / soft & not tender with palpation MSK/EXTREMITIES: NCAT / range of motion intact in all 4 extremities NEURO: CN 2-12 are intact / she has some horizontal nystagmus / speech is not dysarthric / strength is 5/5 / no finger to nose dysmetria / no ankle clonus / she has diminished DTs at the elbows, brachioradials, and patellar tendons bilaterally PSYCH: alert and oriented to person place and time/ able to understand and follow all commands LABORATORY DATA: 03/18/20 18:06 03/18/20 18:06: Immature Granulocyte % (Auto) 0.3, Neutrophils (%) (Auto) 74.1H, Lymphocytes (%) (Auto) 19.4L, Monocytes (%) (Auto) 4.5, Eosinophils (%) (Auto) 1.3, Basophils (%) (Auto) 0.4, Neutrophils # (Auto) 5.7, Lymphocytes # (Auto) 1.5, Monocytes # (Auto) 0.4, Eosinophils # (Auto) 0.1, Basophils # (Auto) 0.0, Nucleated Red Blood Cells % (auto) 0.0, Anion Gap 5L, Glomerular Filtration Rate > 60.0, Lactic Acid Level 1.3, Calcium Level 8.7, Magnesium Level 2.2, Total Creatine Kinase 68, Creatine Kinase MB < 1.0, Creatine Kinase MB Relative Index 1.47, Troponin I < 0.02, Thyroid Stimulating Hormone (TSH) 1.410, Human Chorionic Gonadotropin, Qual NEGATIVE, Salicylates Level 1.8L, Acetaminophen Level < 2.0L, Ethyl Alcohol Level < 0.003 03/18/20 18:51: Coronavirus (COVID-19)(PCR) NEGATIVE 03/18/20 19:31: Urine Color YELLOW, Urine Appearance CLEAR, Urine pH 7.0, Urine Specific [place] 1.013, Urine Protein NEGATIVE, Urine Glucose (UA) NEGATIVE, Urine Ketones NEGATIVE, Urine Blood NEGATIVE, Urine Nitrite NEGATIVE, Urine Bilirubin NEGATIVE, Urine Urobilinogen 0.2, Urine Leukocyte Esterase NEGATIVE, Urine WBC (Auto) 2, Urine RBC (Auto) 0, Urine Hyaline Casts (Auto) 0, Urine Bacteria (Auto) 1+H, Urine Squamous Epithelial Cells 1, Urine Sperm (Auto) , Urine Opiates Screen NEGATIVE, Urine Methadone Screen NEGATIVE, Urine Barbiturates Screen NEGATIVE, Urine Phencyclidine Screen NEGATIVE, Urine Amphetamines Screen NEGATIVE, Urine Benzodiazepines Screen NEGATIVE, Urine Cocaine Metabolite Screen NEGATIVE, Urine Cannabinoids Screen NEGATIVE IMAGING: CT head "No acute intracranial pathology." MRA head "No MRA evidence of intracranial arterial occlusion or significant stenosis." MRI head "1. Scattered nonspecific T2/FLAIR hyperintensities of the periventricular and deep subcortical white matter. Differential includes but is not limited to sequela of chronic small vessel ischemic change versus dem yelinating disease such as multiple sclerosis. Recommend neurology consultation. 2. No MR evidence of acute infarct. " ASSESSMENT: is a 44-year-old with a history of seizure disorder, migraines, LAVERN, obesity & GERD who came to the hospital for evaluation of dizziness of unclear cause. PLAN: 1. Dizziness Cause TBD Imaging of the brain is negative for acute stroke, but the MRI showed abnormal T2 FLAIR hyperintensities around the periventricular and deep subcortical matter that may be due to chronic small vessel ischemic disease or demyelinating disease. Plan: Admit to medical floor/follow-up precautions/seizure precautions/neuro checks/follow-up MRI of the brain with gadolinium / the daytime team may consider consulting neurology or calling her neurologist in [place] 2. Normocytic anemia Plan: Follow-up iron panel, B12, folate/ if stool occult is neg she may need an out pt Gyne referral 3. 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 Migraines Plan: Propranolol, and sumatriptan 5. GERD Plan: Omeprazole DVT PROPHYLAXIS: lovenox DISPOSITION: home after more than 2 midnight's stay Home Medications Scheduled Ascorbic Acid (Vitamin C) 500 Mg Tablet, 500 MG PO BID Cyanocobalamin (Vitamin B-12) (Vitamin B12) 5,000 Mcg Tab.rapdis, 5,000 MG PO BID Diclofenac Sodium (Diclofenac Sodium) 50 Mg Tablet.dr, 50 MG PO BID Esomeprazole Magnesium (Esomeprazole Magnesium Dr) 40 Mg Capsule.dr, 40 MG PO DAILY Ethynodiol D-Ethinyl Estradiol ([place] 1-35 28 Tablet) 1 Each Tablet, 1 TAB PO DAILY Levetiracetam (Keppra) 500 Mg Tablet, 1,750 MG PO BID Magnesium Oxide (Magnesium Oxide) 400 Mg Tablet, 400 MG PO BID Montelukast Sodium (Montelukast Sodium) 10 Mg Tablet, 10 MG PO QHS Nortriptyline HCl (Nortriptyline HCl) 25 Mg Capsule, 50 MG PO QHS Propranolol HCl (Propranolol HCl) 20 Mg Tablet, 20 MG PO BID Trazodone HCl (Trazodone HCl) 50 Mg Tablet, 50 MG PO QHS Scheduled PRN Albuterol Sulfate (Albuterol Sulfate Hfa) 8.5 Gm Hfa.aer.ad, 2 PUFFS PO PRN PRN for SOB/COUGH Sumatriptan Succinate (Sumatriptan Succinate) 50 Mg Tablet, 50 MG PO ASDIRECTED PRN for MIGRAINE Allergies Coded Allergies: azithromycin (Verified Allergy, Severe, RASH, trouble breathing, 03/18/20) bee venom protein (honey bee) (Verified Allergy, Severe, RASH,trouble breathing, 03/18/20) naproxen (Verified Allergy, Severe, RASH,trouble breathing, 03/18/20) tramadol (Verified Allergy, Severe, RASH,trouble breathing, 03/18/20) A-FIB/CHADSVASC A-FIB History Current/History of A-Fib/PAF?: No Current PO Anticoag Therapy: No MALIK BONNER MD Mar 19, 2020 00:27
[2020-03-19] MEDS ORDERED: MAALOX 30 ML SUSP *UDC PO PRN (00:30)
[2020-03-19] MEDS ORDERED: MOM 30ML SUSPENSION UDC PO PRN (00:30)
[2020-03-19] MEDS ORDERED: ACETAMINOPHEN TAB 650MG DOSE (2X325MG) PO PRN (00:30)
[2020-03-19 01:35] VITALS: BP 140/74
[2020-03-19 01:56] LABS: INR 0.92; PROTHROMBIN TIME 12.5 SECONDS (12.5-14.3)
[2020-03-19] MEDS ORDERED: ALBUTEROL 90 MCG/ACT 8GM HFA INHALER INH PRN (02:00)
[2020-03-19] MEDS ORDERED: SUMAtriptan SUCCINATE 25 MG TAB PO PRN (02:00)
[2020-03-19 02:14] LABS: HEMOGLOBIN A1c 5.3 %
[2020-03-19 02:15] LABS: CK-MB VALUE MASS < 1.0 NG/ML (<3.6); CPK CREATINE PHOSPHOKINASE 62 U/L (26-192); MB/CK RELATIVE INDEX 1.61 (< OR =4); TROPONIN I < 0.02 NG/ML (< 0.10)
[2020-03-19] MEDS: MONTELUKAST 10 MG TAB PO SCH ×2 (02:53→20:12)
[2020-03-19] MEDS: LIDOCAINE 5% (LIDODERM) PATCH TD SCH ×2 (02:53→20:09)
[2020-03-19] MEDS: levETIRAcetam 250MG TABLET (KEPPRA) PO SCH ×3 (02:54→20:12)
[2020-03-19] MEDS: RAMELTEON 8 MG TAB (ROZEREM) PO SCH ×2 (02:55→20:13)
[2020-03-19] MEDS: PROPRANOLOL 20 MG TAB PO SCH ×3 (02:55→20:10)
[2020-03-19] MEDS: MAGNESIUM OXIDE 400 MG TAB (MAG-OX) PO SCH ×3 (02:55→20:12)
[2020-03-19] MEDS: NORTRIPTYLINE 25 MG CAP PO SCH ×2 (02:55→20:21)
[2020-03-19 06:00] VITALS: BP 111/58
[2020-03-19 07:21] LABS: HEMATOCRIT 34.6 % (36.0-47.0); HEMOGLOBIN 11.2 g/dl (12.0-15.5); MEAN CORPUSCULAR HEMOGLOBIN 29.2 pg (27.0-33.0); MEAN CORPUSCULAR HGB CONC 32.4 g/dl (32.0-36.5); MEAN CORPUSCULAR VOLUME 90.1 fl (80.0-96.0); PLATELET COUNT, AUTOMATED 258 10^3/uL (150-450); RED BLOOD COUNT 3.84 10^6/uL (4.00-5.40); WHITE BLOOD COUNT 6.6 10^3/uL (4.0-10.0)
[2020-03-19 07:42] LABS: BLOOD UREA NITROGEN 12 MG/DL (7-18); CALCIUM LEVEL 8.4 MG/DL (8.5-10.1); CARBON DIOXIDE LEVEL 25 MEQ/L (21-32); CHLORIDE LEVEL 109 MEQ/L (98-107); GLOMERULAR FILTRATION RATE > 60.0 (>58); GLUCOSE, FASTING 94 MG/DL (70-100); POTASSIUM SERUM 3.8 MEQ/L (3.5-5.1); SODIUM LEVEL 141 MEQ/L (136-145)
[2020-03-19] MEDS ORDERED: PROHANCE 279.3MG/ML 5ML VIAL As Ordered ONE (07:55)
[2020-03-19] MEDS ORDERED: PROHANCE 279.3MG/ML 15ML VIAL As Ordered ONE (07:55)
--- NOTE | 2020-03-19 09:05 | REPVR ---
PROCEDURE INFORMATION: Exam: MR Head With Contrast Exam date and time: 03/19/2020 8:14 AM Age: 44 years old Clinical indication: Abnormal findings; Abnormal radiologic findings of head/skull; Demyelination; Dizziness; Patient HX: Possible m/s found on mri brain without on pacs; Additional info: Suspected ms on mri w/o contrast need mri w anand TECHNIQUE: Imaging protocol: MR of the head with intravenous contrast. 3D rendering (Not supervised by radiologist): MIP and/or 3D reconstructed images were created by the technologist. Contrast material: PROHANCE; Contrast volume: 20 ml; Contrast route: INTRAVENOUS (IV); COMPARISON: MRI-Brain without Contrast 03/18/2020 11:02 PM FINDINGS: Image quality is degraded by motion. Brain: There is no extra-axial collection or intra-axial mass. There is no abnormal enhancement within the brain. Cerebral ventricles: Normal. No ventriculomegaly. Bones/joints: Unremarkable. Paranasal sinuses: There is mild right sphenoid sinus mucosal thickening. Mastoid air cells: Normal as visualized. No mastoid effusion. Orbits: Unremarkable. Soft tissues: Unremarkable. IMPRESSION: No acute findings. Electronically signed by: Cee Jiang On 03/19/2020 09:05:17 AM
[2020-03-19] MEDS: **NOTE PATIENT COMMENT** MISC XX SCH (10:00)
[2020-03-19 10:10] LABS: PROLACTIN 8.8 NG/ML
[2020-03-19] MEDS: ENOXAPARIN 40MG/0.4ML SYRINGE (J1650 PER 10MG) SC SCH (10:18)
[2020-03-19] MEDS: OMEPRAZOLE 20 MG CAP PO SCH (10:19)
[2020-03-19 10:21] LABS: FOLATE 13.5 NG/ML (>5.4)
[2020-03-19 14:00] VITALS: BP 100/64
--- NOTE | 2020-03-19 14:41 | IPNPDOC ---
Date Seen The patient was seen on 03/19/20. Progress Note SUBJECTIVE: Yesenia was seen and examined at the bedside this morning. She reports that she feels well at this time. She tells me that she came to the hospital because for the past 3-4 days she's been having episodes of lightheadedness and blurry vision that last anywhere between 10 minutes to a day happening at random times. 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 She did not lose any consciousness, nor did she fall. She does have a history of seizures for which she sees a neurologist in [place], and she has been taking her medication faithfully. These episodes do not feel like her usual seizures. OBJECTIVE PHYSICAL EXAMINATION: VITAL SIGNS: see below GENERAL: Obese, alert and oriented, in no apparent distress, pleasant and conversant in full sentences. HEENT: PERRL, EOMI, Oral mucous membranes are moist without lesions. NECK: The patient has no noted JVD. No adenopathy is appreciated. No thyromegaly CHEST/LUNGS: Lungs are clear bilaterally without rhonchi, rales, or wheezes. There is no subcutaneous air appreciated. There is no tenderness to the chest wall. HEART:Regular rate and rhythm. No murmurs, rubs, or gallops are appreciated. Distal pulses are 2+. No carotid bruits appreciated. ABDOMEN: Obese, Soft, nontender, and nondistended. Bowel sounds are positive. No organomegaly is appreciated. No masses are appreciated. There are no peritoneal signs. There is no [place] sign. EXTREMITIES: No peripheral edema. There is no focal long bone tenderness or deformity. SKIN: The patients skin is warm and dry, without rashes or lesions. PSYCHIATRIC: AAO x 3, normal mood/affect NEUROLOGIC: The patient has 5/5 strength to the upper and lower extremities bilaterally. Sensation is intact throughout. Deep tendon reflexes are 2+ in all four extremities. There are no deficits to the cranial nerves. No visual field deficits appreciated, fingertonose test normal. No noted nystagmus. LABORATORY DATA, IMAGING STUDIES, MICROBIOLOGY: Please see below. MRI BRAIN: FINDINGS: Image quality is degraded by motion. Brain: There is no extra-axial collection or intra-axial mass. There is no abnormal enhancement within the brain. Cerebral ventricles: Normal. No ventriculomegaly. Bones/joints: Unremarkable. Paranasal sinuses: There is mild right sphenoid sinus mucosal thickening. Mastoid air cells: Normal as visualized. No mastoid effusion. Orbits: Unremarkable. Soft tissues: Unremarkable. IMPRESSION: No acute findings. MRI BRAIN WITHOUT CONTRAST: FINDINGS: Brain: Scattered nonspecific T2/FLAIR hyperintensities of the periventricular and deep subcortical white matter. No intracranial hemorrhage or extra-axial fluid collection. No evidence of mass effect or midline shift. No restricted diffusion to suggest acute infarct. Cerebral ventricles: No ventriculomegaly. Bones/joints: Unremarkable. Paranasal sinuses: Mild mucosal thickening of the right sphenoid sinus. Mastoid air cells: No mastoid effusion. Orbits: Unremarkable. Soft tissues: Unremarkable. IMPRESSION: 1. Scattered nonspecific T2/FLAIR hyperintensities of the periventricular and deep subcortical white matter. Differential includes but is not limited to sequela of chronic small vessel ischemic change versus demyelinating disease such as multiple sclerosis. Recommend neurology consultation. 2. No MR evidence of acute infarct. MRA BRAIN: FINDINGS: ANTERIOR CIRCULATION: Right internal carotid artery: Intracranial segment is patent with no significant stenosis. No aneurysm. Right middle cerebral artery: No occlusion or significant stenosis. No aneurysm. Right anterior cerebral artery: No occlusion or significant stenosis. No aneurysm. Left internal carotid artery: Intracranial segment is patent with no significant stenosis. No aneurysm. Left middle cerebral artery: No occlusion or significant stenosis. No aneurysm. Left anterior cerebral artery: No occlusion or significant stenosis. No aneurysm. POSTERIOR CIRCULATION: Right vertebral artery: No occlusion or significant stenosis. No aneurysm. Left vertebral artery: No occlusion or significant stenosis. No aneurysm. Basilar artery: No occlusion or significant stenosis. No aneurysm. Right posterior cerebral artery: No occlusion or significant stenosis. No aneurysm. Left posterior cerebral artery: No occlusion or significant stenosis. No aneurysm. IMPRESSION: No MRA evidence of intracranial arterial occlusion or significant stenosis. Echocardiogram: Pending DVT prophylaxis ordered?: Lovenox ASSESSMENT AND PLAN: This is a 44-year-old female with a history of seizure disorder unspecified, chronic migraines, [place] who presents with several episodes of near syncope with subsequent workup only concerning for hyperintensity in the periventricular and deep subcortical matter concerning for demyelinating disease. PROBLEMS: 1. Nearsyncope: On his differential is vasovagal syncope due to the patient standing for long periods of time at work, versus arrhythmia versus bradycardia versus pathology related to her seizure disorder. These "episodes" are unlike her previous seizures. -Vital signs have been within normal limits thus far this admission -All electrolytes within normal limits -Will transfer patient to [address] [place] [address] for telemetry monitoring -Echocardiogram ordered and pending -Orthostatic vital signs ordered and pending -Patient is on several meds at home that could be contributing to bradycardia/hypotension: Propanolol, trazodone, nortriptyline 2. History of seizure disorder: -Will order repeat EEG inpatient -Prolactin level ordered and pending -Continue Keppra at current home dose -Will attempt to get records from [facility] neurologist 3. History of migraines: -Patient is currently on propanolol twice daily. This may be contributing to bradycardia, but patient's heart rate has been normal on this admission. -Continue sumatriptan 4. GERD: -Continue esomeprazole DISPOSITION: Pending further workup, EEG and echocardiogram VS, I&O, 24H, Fishbone Vital Signs/I&O Vital Signs Date Time Temp Pulse Resp B/P (MAP) Pulse Ox O2 Delivery O2 Flow Rate FiO2 03/19/20 10:18 80 111/58 03/19/20 06:00 97.4 18 94 Room Air I&O- Last 24 Hours up to 6 AM 03/19/20 05:59 Intake Total 1000 ml Output Total 600 ml Balance 400 ml Laboratory Data 24H LABS Laboratory Tests 2 03/18/20 18:06: Immature Granulocyte % (Auto) 0.3, Neutrophils (%) (Auto) 74.1H, Lymphocytes (%) (Auto) 19.4L, Monocytes (%) (Auto) 4.5, Eosinophils (%) (Auto) 1.3, Basophils (%) (Auto) 0.4, Neutrophils # (Auto) 5.7, Lymphocytes # (Auto) 1.5, Monocytes # (Auto) 0.4, Eosinophils # (Auto) 0.1, Basophils # (Auto) 0.0, Nucleated Red Blood Cells % (auto) 0.0, Anion Gap 5L, Glomerular Filtration Rate > 60.0, Lactic Acid Level 1.3, Calcium Level 8.7, Magnesium Level 2.2, Total Creatine Kinase 68, Creatine Kinase MB < 1.0, Creatine Kinase MB Relative Index 1.47, Troponin I < 0.02, Thyroid Stimulating Hormone (TSH) 1.410, Human Chorionic Gonadotropin, Qual NEGATIVE, Salicylates Level 1.8L, Acetaminophen Level < 2.0L, Ethyl Alcohol Level < 0.003 03/18/20 18:15: POC Glucose (Misc Panel) 102, POC Sodium (Misc Panel) 140, POC Potassium (Misc Panel) 3.8, POC Chloride (Misc Panel) 105, POC Total CO2 (Misc Panel) 25.0, POC Blood Urea Nitrogen (Misc Panel 18, POC Ionized Calcium (Misc Panel) 4.5, POC Creatinine (Misc Panel) 0.9, POC Hematocrit (Misc Panel) 35.0L 03/18/20 18:51: Coronavirus (COVID-19)(PCR) NEGATIVE 03/18/20 19:31: Urine Color YELLOW, Urine Appearance CLEAR, Urine pH 7.0, Urine Specific [place] 1.013, Urine Protein NEGATIVE, Urine Glucose (UA) NEGATIVE, Urine Ketones NEGATI VE, Urine Blood NEGATIVE, Urine Nitrite NEGATIVE, Urine Bilirubin NEGATIVE, Urine Urobilinogen 0.2, Urine Leukocyte Esterase NEGATIVE, Urine WBC (Auto) 2, Urine RBC (Auto) 0, Urine Hyaline Casts (Auto) 0, Urine Bacteria (Auto) 1+H, Urine Squamous Epithelial Cells 1, Urine Sperm (Auto) , Urine Opiates Screen NEGATIVE, Urine Methadone Screen NEGATIVE, Urine Barbiturates Screen NEGATIVE, Urine Phencyclidine Screen NEGATIVE, Urine Amphetamines Screen NEGATIVE, Urine Benzodiazepines Screen NEGATIVE, Urine Cocaine Metabolite Screen NEGATIVE, Urine Cannabinoids Screen NEGATIVE 03/19/20 01:27: Prothrombin Time 12.5, Prothromb Time International Ratio 0.92, Activated Partial Thromboplast Time 32.0, Estimated Mean Plasma Glucose 105, Hemoglobin A1c 5.3, Iron Level 62, Total Iron Binding Capacity 413, Transferrin % Saturation 15.0, Ferritin 22, Total Creatine Kinase 62, Creatine Kinase MB < 1.0, Creatine Kinase MB Relative Index 1.61, Troponin I < 0.02, Vitamin B12 Level 793, Folate 13.5, Prolactin 8.8 03/19/20 06:55: Nucleated Red Blood Cells % (auto) 0.0, Anion Gap 7L, Glomerular Filtration Rate > 60.0, Calcium Level 8.4L CBC/BMP Laboratory Tests 03/18/20 18:06 03/19/20 06:55 GME ATTESTATION GME ATTESTATION My faculty preceptor for this patient encounter was physically present during the encounter and was fully available. All aspects of the patient interview, examination, medical decision making process, and medical care plan development were reviewed and approved by the faculty preceptor. The faculty preceptor is aware and concurs with the plan as stated in the body of this note and will attest to such by his/her cosignature. ATTENDING NOTE Patient was seen and examined by me personally with the students and the residents. Agree with the above assessment and plan. RAF VELÁZQUEZ MD Mar 19, 2020 14:41 ZECHARIAH MARIO MD Mar 23, 2020 11:10
[2020-03-19 15:00] VITALS: BP_SYST 112; BP_SYST 142; BP_SYST 154; BP_DIAS 104; BP_DIAS 70; BP_DIAS 90
[2020-03-19 15:40] VITALS: BP 159/83
[2020-03-19] MEDS ORDERED: NS 1,000 ML IV ONE (19:00)
[2020-03-19 22:00] VITALS: BP_SYST 123; BP_SYST 132; BP_SYST 143; BP_SYST 164; BP_DIAS 56; BP_DIAS 72; BP_DIAS 75; BP_DIAS 77
[2020-03-20 06:00] VITALS: BP_SYST 125; BP_SYST 138; BP_SYST 143; BP_DIAS 64; BP_DIAS 77; BP_DIAS 85
[2020-03-20 06:15] LABS: HEMATOCRIT 32.9 % (36.0-47.0); HEMOGLOBIN 10.7 g/dl (12.0-15.5); MEAN CORPUSCULAR HEMOGLOBIN 29.5 pg (27.0-33.0); MEAN CORPUSCULAR HGB CONC 32.5 g/dl (32.0-36.5); MEAN CORPUSCULAR VOLUME 90.6 fl (80.0-96.0); PLATELET COUNT, AUTOMATED 250 10^3/uL (150-450); RED BLOOD COUNT 3.63 10^6/uL (4.00-5.40); WHITE BLOOD COUNT 5.4 10^3/uL (4.0-10.0)
[2020-03-20 06:34] LABS: BLOOD UREA NITROGEN 13 MG/DL (7-18); CALCIUM LEVEL 8.6 MG/DL (8.5-10.1); CARBON DIOXIDE LEVEL 26 MEQ/L (21-32); CHLORIDE LEVEL 110 MEQ/L (98-107); CREATININE FOR GFR 0.89 MG/DL (0.55-1.30); GLOMERULAR FILTRATION RATE > 60.0 (>58); GLUCOSE, FASTING 103 MG/DL (70-100); POTASSIUM SERUM 3.8 MEQ/L (3.5-5.1); SODIUM LEVEL 143 MEQ/L (136-145)
[2020-03-20] MEDS: ENOXAPARIN 40MG/0.4ML SYRINGE (J1650 PER 10MG) SC SCH (08:05)
[2020-03-20 08:06] VITALS: BP 125/64
[2020-03-20] MEDS: levETIRAcetam 250MG TABLET (KEPPRA) PO SCH (08:06)
[2020-03-20] MEDS: PROPRANOLOL 20 MG TAB PO SCH (08:06)
[2020-03-20] MEDS: OMEPRAZOLE 20 MG CAP PO SCH (08:06)
[2020-03-20] MEDS: MAGNESIUM OXIDE 400 MG TAB (MAG-OX) PO SCH (08:07)
[2020-03-20] MEDS ORDERED: INFLUENZA QUADRIVALENT PF VACCINE 0.5ML SYRINGE IM ONE (09:00)
[2020-03-20] MEDS: **NOTE PATIENT COMMENT** MISC XX SCH (09:18)
--- NOTE | 2020-03-20 16:19 | DS.PDOC ---
Discharge Summary General Date of Admission Mar 19, 2020 at 00:27 Date of Discharge March 20, 2020 Attending Physician: ZECHARIAH MARIO MD Discharge Summary PROCEDURES PERFORMED DURING STAY: [None]. ADMITTING DIAGNOSES: 1. Near syncope 2. History of seizure disorder 3. Migraines DISCHARGE DIAGNOSES: 1. Near syncope 2. History of seizure disorder 3. Migraines COMPLICATIONS/CHIEF COMPLAINT: Pre-Syncope. HISTORY OF PRESENT ILLNESS: This 44 year-old female resented with complaints of a couple episodes of feeling dizzy & weak for the last 3 days. Yesterday while she was at work. Her symptoms got worse. She had one episode in particular where she was trying to walk and ended up leading to the left side. She had another episode while standing in the bathroom stall, which resulted in her having fecal and urinary incontinence; he was able to catch herself and avoid falling. She is not sure if she feels like the ground was moving beneath her when the episodes occur, she denies ringing in her ears, denies having blurry vision, denies falling, denies losing consciousness, and denies dropping any objects. She has never had episodes of dizziness in the past and added that these episodes are different from her seizures. She was instructed to come to the hospital by her her Neurologist in [place]. HOSPITAL COURSE: The patient was admitted for syncope workup. She was placed on continuous cardiac monitoring. She had no arrhythmias or events during her hospitalization. Orthostatic vital signs were checked and were found to be positive, she was subsequently given 1 L fluid bolus and orthostats were found to be negative afterwards. She underwent workup including MRI brain with and without contrast and MRA brain. Findings were significant for "Scattered nonspecific T2/FLAIR hyperintensities of the periventricular and deep subcortical white matter. Differential includes but is not limited to sequela of chronic small vessel ischemic change versus demyelinating disease such as multiple sclerosis." This finding was discussed with neurology (Dr. Nassar) who notes that the patient was seen in his office several years ago for seizure disorder. He recommended outpatient follow-up with the patient's Neurologist in [place] for possible lumbar puncture given the mixed picture of hyperintensities which may represent migraines vs MS. The patient also had echocardiogram during this hospitalization with findings pending. DISCHARGE MEDICATIONS: Please see below. ALLERGIES: Please see below. PHYSICAL EXAMINATION ON DISCHARGE: VITAL SIGNS: Please see below. GENERAL: Obese, alert and oriented, in no apparent distress, pleasant and conversant in full sentences. HEENT: PERRL, EOMI, Oral mucous membranes are moist without lesions. NECK: The patient has no noted JVD. No adenopathy is appreciated. No thyromegaly CHEST/LUNGS: Lungs are clear bilaterally without rhonchi, rales, or wheezes. There is no subcutaneous air appreciated. There is no tenderness to the chest wall. HEART:Regular rate and rhythm. No murmurs, rubs, or gallops are appreciated. Distal pulses are 2+. No carotid bruits appreciated. ABDOMEN: Obese, Soft, nontender, and nondistended. Bowel sounds are positive. No organomegaly is appreciated. No masses are appreciated. There are no peritoneal signs. There is no [place] sign. EXTREMITIES: No peripheral edema. There is no focal long bone tenderness or deformity. SKIN: The patients skin is warm and dry, without rashes or lesions. PSYCHIATRIC: AAO x 3, normal mood/affect NEUROLOGIC: The patient has 5/5 strength to the upper and lower extremities bilaterally. Sensation is intact throughout. Deep tendon reflexes are 2+ in all four extremities. There are no deficits to the cranial nerves. No visual field deficits appreciated, fingertonose test normal. No noted nystagmus. LABORATORY DATA: Please see below. IMAGING: HEAD CT: FINDINGS: Brain: No intracranial hemorrhage or extra-axial fluid collection. No evidence of mass effect or midline shift. Mitchell-white matter differentiation is intact. Cerebral ventricles: No ventriculomegaly. Bones/joints: No acute osseus lesion or fracture. Paranasal sinuses: Visualized sinuses are unremarkable. No fluid levels. Mastoid air cells: Unremarkable. Soft tissues: Unremarkable. IMPRESSION: No acute intracranial pathology. MRA BRAIN: FINDINGS: ANTERIOR CIRCULATION: Right internal carotid artery: Intracranial segment is patent with no significant stenosis. No aneurysm. Right middle cerebral artery: No occlusion or significant stenosis. No aneurysm. Right anterior cerebral artery: No occlusion or significant stenosis. No aneurysm. Left internal carotid artery: Intracranial segment is patent with no significant stenosis. No aneurysm. Left middle cerebral artery: No occlusion or significant stenosis. No aneurysm. Left anterior cerebral artery: No occlusion or significant stenosis. No aneurysm. POSTERIOR CIRCULATION: Right vertebral artery: No occlusion or significant stenosis. No aneurysm. Left vertebral artery: No occlusion or significant stenosis. No aneurysm. Basilar artery: No occlusion or significant stenosis. No aneurysm. Right posterior cerebral artery: No occlusion or significant stenosis. No aneurysm. Left posterior cerebral artery: No occlusion or significant stenosis. No aneurysm. IMPRESSION: No MRA evidence of intracranial arterial occlusion or significant stenosis MRI BRAIN: FINDINGS: Brain: Scattered nonspecific T2/FLAIR hyperintensities of the periventricular and deep subcortical white matter. No intracranial hemorrhage or extra-axial fluid collection. No evidence of mass effect or midline shift. No restricted diffusion to suggest acute infarct. Cerebral ventricles: No ventriculomegaly. Bones/joints: Unremarkable. Paranasal sinuses: Mild mucosal thickening of the right sphenoid sinus. Mastoid air cells: No mastoid effusion. Orbits: Unremarkable. Soft tissues: Unremarkable. IMPRESSION: 1. Scattered nonspecific T2/FLAIR hyperintensities of the periventricular and deep subcortical white matter. Differential includes but is not limited to sequela of chronic small vessel ischemic change versus demyelinating disease such as multiple sclerosis. Recommend neurology consultation. 2. No MR evidence of acute infarct. MRI BRAIN WITH CONTRAST: FINDINGS: Image quality is degraded by motion. Brain: There is no extra-axial collection or intra-axial mass. There is no abnormal enhancement within the brain. Cerebral ventricles: Normal. No ventriculomegaly. Bones/joints: Unremarkable. Paranasal sinuses: There is mild right sphenoid sinus mucosal thickening. Mastoid air cells: Normal as visualized. No mastoid effusion. Orbits: Unremarkable. Soft tissues: Unremarkable. IMPRESSION: No acute findings. PROGNOSIS: fair ACTIVITY: [As tolerated]. DIET: as tolerated DISCHARGE PLAN: home DISPOSITION: . DISCHARGE INSTRUCTIONS: 1. Follow up with neurology in [facility] TO FOLLOWUP ON ON OUTPATIENT: 1. Echo 2. MRI findings DISCHARGE CONDITION: [Stable]. TIME SPENT ON DISCHARGE: Greater than 40 minutes. Vital Signs/I&Os Vital Signs Date Time Temp Pulse Resp B/P (MAP) Pulse Ox O2 Delivery O2 Flow Rate FiO2 03/20/20 08:06 89 125/64 03/20/20 06:00 96.9 20 95 Room Air I&O- Last 24 Hours up to 6 AM 03/20/20 06:00 Intake Total 3130 ml Output Total 1450 ml Balance 1680 ml Laboratory Data Labs 24H Laboratory Tests 2 03/20/20 06:00: Nucleated Red Blood Cells % (auto) 0.0, Anion Gap 7L, Glomerular Filtration Rate > 60.0, Calcium Level 8.6 CBC/BMP Laboratory Tests 03/20/20 06:00 Discharge Medications Scheduled Ascorbic Acid (Vitamin C) 500 Mg Tablet, 500 MG PO BID, (Reported) Cyanocobalamin (Vitamin B-12) (Vitamin B12) 5,000 Mcg Tab.rapdis, 5,000 MG PO BID, (Reported) Diclofenac Sodium (Diclofenac Sodium) 50 Mg Tablet.dr, 50 MG PO BID, (Reported) Esomeprazole Magnesium (Esomeprazole Magnesium Dr) 40 Mg Capsule.dr, 40 MG PO DAILY, (Reported) Ethynodiol D-Ethinyl Estradiol (K[place]nor 1-35 28 Tablet) 1 Each Tablet, 1 TAB PO DAILY, (Reported) Levetiracetam (Keppra) 500 Mg Tablet, 1,750 MG PO BID, (Reported) Magnesium Oxide (Magnesium Oxide) 400 Mg Tablet, 400 MG PO BID, (Reported) Montelukast Sodium (Montelukast Sodium) 10 Mg Tablet, 10 MG PO QHS, (Reported) Nortriptyline HCl (Nortriptyline HCl) 25 Mg Capsule, 50 MG PO QHS, (Reported) Propranolol HCl (Propranolol HCl) 20 Mg Tablet, 20 MG PO BID, (Reported) Trazodone HCl (Trazodone HCl) 50 Mg Tablet, 50 MG PO QHS, (Reported) Scheduled PRN Albuterol Sulfate (Albuterol Sulfate Hfa) 8.5 Gm Hfa.aer.ad, 2 PUFFS PO PRN PRN for SOB/COUGH, (Reported) Sumatriptan Succinate (Sumatriptan Succinate) 50 Mg Tablet, 50 MG PO ASDIRECTED PRN for MIGRAINE, (Reported) Allergies Coded Allergies: azithromycin (Verified Allergy, Severe, RASH, trouble breathing, 03/18/20) bee venom protein (honey bee) (Verified Allergy, Severe, RASH,trouble breathing, 03/18/20) naproxen (Verified Allergy, Severe, RASH,trouble breathing, 03/18/20) tramadol (Verified Allergy, Severe, RASH,trouble breathing, 03/18/20) GME ATTESTATION GME ATTESTATION My faculty preceptor for this patient encounter was physically present during the encounter and was fully available. All aspects of the patient interview, examination, medical decision making process, and medical care plan development were reviewed and approved by the faculty preceptor. The faculty preceptor is aware and concurs with the plan as stated in the body of this note and will attest to such by his/her cosignature. ATTENDING NOTE Patient was seen and examined by me personally with the students and the residents. Agree with the above assessment and plan. RAF VELÁZQUEZ MD Mar 20, 2020 16:19 ZECHARIAH MARIO MD Mar 23, 2020 11:16
--- NOTE | 2020-03-21 09:50 | EEG ---
DATE: 03/20/2020 DIAGNOSIS: Episodes of lightheadedness, rule out seizure activity. EEG# [id number]. REFERRING PHYSICIAN: Roma Romo MD. HISTORY: Patient is a 44-year-old woman who was admitted at [facility] with a history of seizures, migraines, episodes of near syncope. This EEG was done to rule out epileptic potential. She is currently taking Keppra, nortriptyline, omeprazole, propranolol, ramelteon. TECHNICAL DESCRIPTION: This digital EEG was recorded by 21-scalp, ear, and two EKG electrodes and was reviewed in bipolar and referential montages following reformatting in 10-20 international electrode placement system. INTERPRETATION: Patient was noted to be in awake and drowsy states during this EEG. Resting and awake background rhythm consisted of 9.5 Hz alpha activity measuring 15-40 microvolts in amplitude, which was symmetric and reactive to eye opening. Attenuation of posterior dominant rhythm was seen during transition to drowsiness. No sleep was achieved. Hyperventilation could not be performed. Photic stimulation at 3-30 Hz elicited symmetric photic driving especially at mid frequencies. EKG revealed normal sinus rhythm. No focal, lateralizing, or epileptiform abnormalities were seen. No relevant clinical activity was noted. CONCLUSION: This EEG in awake and drowsy states is within normal limits. MTDD
--- NOTE | 2020-03-23 13:06 | ECHO ---
DATE OF PROCEDURE: 03/20/2020 Age: 44 Gender: Female Height: 183 cm Weight: 121 kg REFERRING PHYSICIAN: Shannon Hitchcock MD INDICATION: Syncope MEASUREMENTS: IVS 0.8 cm LV 5.3 cm LVPW 1.1 cm LA 3.8 cm Aorta 3.1 cm IVC 1.9 cm Left atrial volume index 26 Mitral E wave velocity 84, A wave 102 E prime septal 9.6, E prime lateral 10.4 FINDINGS: This study is of good technical quality. The patient is in sinus rhythm. The left ventricle is of normal size and has normal systolic function. Estimated LVEF 60% to 65%. Right ventricle is also normal size and systolic function. All four cardiac valves were well seen and appear structurally intact. No pericardial effusion is noted. Inferior vena cava is upper limits of normal size, but collapses with inspiration. Aortic root and aortic arch appear normal. Abdominal aorta was not well seen. Doppler interrogation reveals competent aortic valve. There is trace mitral and trace tricuspid insufficiency. Calculated pulmonary artery pressure is within normal limits. Pulmonic valve is also functionally competent. Mitral inflow pattern and tissue Doppler imaging of the mitral annulus revealed grade 1 diastolic dysfunction. CONCLUSIONS: 1. Study is of good technical quality, underlying sinus rhythm. 2. Normal LV size with normal LV systolic function and grade 1 diastolic dysfunction. 3. No significant valvular disease. 4. Likely normal central venous pressure and normal pulmonary artery pressure. COMMENTS: No findings to explain syncopal event. MTDD
== END 2020-03-20 16:31 | disposition home or self-care (01) | DRG 312 ==
LOC: M ED 17:26 → M ED INP 03-19 00:27 → ENRESERVDT 03-19 00:53 → ENRESERVTM 03-19 00:53 → M MS5PR 03-19 01:35 → M MSPAV 03-19 15:30
PROVIDERS: ADMIT Internal Medicine; ATTEND Internal Medicine
DX: R55 Syncope and collapse (principal); D64.9 Anemia, unspecified; G40.409 Other generalized epilepsy and epileptic syndromes, not intractable, without status epilepticus; G43.709 Chronic migraine without aura, not intractable, without status migrainosus; R42 Dizziness and giddiness; K21.9 Gastro-esophageal reflux disease without esophagitis; G47.33 Obstructive sleep apnea (adult) (pediatric); Z87.891 Personal history of nicotine dependence; Z79.899 Other long term (current) drug therapy; Z88.1 Allergy status to other antibiotic agents; Z88.5 Allergy status to narcotic agent; Z88.6 Allergy status to analgesic agent; Z91.030 Bee allergy status; Z20.828 Contact with and (suspected) exposure to other viral communicable diseases

== ENCOUNTER 2020-10-06 22:22 | Emergency (ER) | payer MEDICARE, MEDICAID ==
[~2020-10-06] VITALS: Ht 182.9 cm; Wt 123.7 kg
[~2020-10-06 22:22] MED LIST changes: +ALBU8.5H PO; +CVS5000S2 PO; +DICL50TAB PO; +ESOM40CA35 PO; +KELN1TAB PO; +MAGN400T3 PO; +MONT10TA10 PO; -MONT10TA4 PO; +NORT25CA2 PO; +PROP20TA72 PO; +RA M500C PO; +SUMA50TA2 PO; +TRAZ-252 PO; +VITA-158 PO
[2020-10-06 22:23] VITALS: BP 132/80
[2020-10-06] MEDS ORDERED: CVS10CAP7 PO (22:33)
[2020-10-07] MEDS ORDERED: CEPHALEXIN 500 MG CAP PO ONE (04:10)
[2020-10-07] MEDS ORDERED: CEPH500C PO (04:10)
== END 2020-10-07 05:17 | disposition home or self-care (01) ==
LOC: M ED 22:22
DX: L01.00 Impetigo, unspecified (principal); J45.909 Unspecified asthma, uncomplicated; G40.909 Epilepsy, unspecified, not intractable, without status epilepticus; I25.2 Old myocardial infarction; Z79.899 Other long term (current) drug therapy; Z88.1 Allergy status to other antibiotic agents; Z88.5 Allergy status to narcotic agent; Z88.8 Allergy status to other drugs, medicaments and biological substances; Z91.030 Bee allergy status

== ENCOUNTER → 2021-03-15 | Outpatient (CLI) | payer MEDICAID, MEDICARE ==
[~2021-03-15] MED LIST changes: +CEPH500C PO; +CVS10CAP7 PO; -MAGN400T3 PO; +MAGN400T33 PO; +TOPI25TA10 PO
== END ==
LOC: M LABSMTC 09:33
PROVIDERS: ATTEND Anesthesiology
DX: Z01.812 Encounter for preprocedural laboratory examination (principal); Z20.822 Contact with and (suspected) exposure to COVID-19

== ENCOUNTER → 2021-05-30 | Outpatient (CLI) | payer MEDICAID ==
[~2021-05-30] MED LIST changes: +B-121TAB3 PO; -MONT10TA10 PO; +MONT10TA97 PO
[2021-05-30 14:42] LABS: ALBUMIN 3.4 GM/DL (3.2-5.2); ALT/SGPT 45 U/L (12-78); BILIRUBIN,TOTAL 0.2 MG/DL (0.2-1.0); BLOOD UREA NITROGEN 19 MG/DL (7-18); CALCIUM LEVEL 8.8 MG/DL (8.5-10.1); CARBON DIOXIDE LEVEL 26 MEQ/L (21-32); CHLORIDE LEVEL 110 MEQ/L (98-107); CREATININE FOR GFR 0.85 MG/DL (0.55-1.30); GLOMERULAR FILTRATION RATE > 60.0 (>58); GLUCOSE, FASTING 106 MG/DL (70-100); POTASSIUM SERUM 3.6 MEQ/L (3.5-5.1); SODIUM LEVEL 138 MEQ/L (136-145); TOTAL PROTEIN 7.4 GM/DL (6.4-8.2)
== END ==
LOC: M LAB 13:47
PROVIDERS: ATTEND Nurse Practitioner Adult Health
DX: Z79.899 Other long term (current) drug therapy (principal)

== ENCOUNTER → 2021-06-07 | Outpatient (CLI) | payer MEDICAID | LOC: M LABSMTC 09:43 | PROVIDERS: ATTEND Anesthesiology | DX: Z01.812 Encounter for preprocedural laboratory examination (principal); Z20.822 Contact with and (suspected) exposure to COVID-19 ==

== ENCOUNTER 2021-06-12 10:12 | Day surgery (SDC) | payer MEDICAID ==
[~2021-06-12] VITALS: Ht 182.9 cm; Wt 122.5 kg
[~2021-06-12 10:12] MED LIST changes: +NS 1,000 ML IV ONE
[2021-06-12] MEDS ORDERED: LIDOCAINE 2% MDV 20ML VIAL As Ordered ONE (12:06)
[2021-06-12] MEDS ORDERED: propofoL 200 MG/20 ML VIAL As Ordered ONE (12:06)
[2021-06-12] MEDS ORDERED: fentaNYL 100 MCG/2 ML INJECTION As Ordered ONE (12:07)
[2021-06-12 13:14] VITALS: BP 129/74
== END 2021-06-12 12:59 | disposition home or self-care (01) ==
LOC: M OPP 10:12
PROVIDERS: ATTEND Internal Medicine Gastroenterology
DX: K22.89 Other specified disease of esophagus (principal); K44.9 Diaphragmatic hernia without obstruction or gangrene; R12 Heartburn; Z79.891 Long term (current) use of opiate analgesic; Z79.899 Other long term (current) drug therapy; Z88.1 Allergy status to other antibiotic agents; Z88.5 Allergy status to narcotic agent; Z88.8 Allergy status to other drugs, medicaments and biological substances; Z91.030 Bee allergy status
CPT/HCPCS: 43239; 88305; J3010

== ENCOUNTER 2021-08-27 13:10 | Emergency (ER) | payer MEDICAID ==
[~2021-08-27] VITALS: Ht 182.9 cm; Wt 124.6 kg
[~2021-08-27 13:10] MED LIST changes: -NS 1,000 ML IV ONE
[2021-08-27 13:13] VITALS: BP 149/83
[2021-08-27] MEDS ORDERED: ACETAMINOPHEN 325 MG TAB PO ONE (14:10)
== END 2021-08-27 14:38 | disposition home or self-care (01) ==
LOC: M ED 13:10
DX: M72.2 Plantar fascial fibromatosis (principal); R56.9 Unspecified convulsions; J45.909 Unspecified asthma, uncomplicated; K21.9 Gastro-esophageal reflux disease without esophagitis; F41.9 Anxiety disorder, unspecified; Z88.1 Allergy status to other antibiotic agents; Z88.8 Allergy status to other drugs, medicaments and biological substances; Z91.030 Bee allergy status; Z79.899 Other long term (current) drug therapy

== ENCOUNTER 2021-12-18 20:40 | Emergency (ER) | payer MEDICAID ==
[~2021-12-18] VITALS: Ht 182.9 cm; Wt 129.5 kg
[2021-12-18 21:58] LABS: BASO % 0.2 % (0.0-1.0); EOS # 0.1 10^3/uL (0.0-0.5); HEMOGLOBIN 11.1 g/dl (12.0-15.5); LYMPH # 1.7 10^3/uL (1.5-5.0); LYMPH % 19.8 % (24.0-44.0); MEAN CORPUSCULAR HEMOGLOBIN 28.8 pg (27.0-33.0); MEAN CORPUSCULAR HGB CONC 32.6 g/dl (32.0-36.5); MEAN CORPUSCULAR VOLUME 88.1 fl (80.0-96.0); MONO # 0.5 10^3/uL (0.0-0.8); MONO % 5.7 % (2.0-8.0); NEUTROPHILS # 6.4 10^3/uL (1.5-8.5); NEUTROPHILS % 72.8 % (36.0-66.0); PLATELET COUNT, AUTOMATED 279 10^3/uL (150-450); RED BLOOD COUNT 3.86 10^6/uL (4.00-5.40); WHITE BLOOD COUNT 8.8 10^3/uL (4.0-10.0)
[2021-12-18 22:25] VITALS: BP 128/64
== END 2021-12-18 22:27 | disposition home or self-care (01) ==
LOC: M ED 20:40
DX: R07.89 Other chest pain (principal); K21.9 Gastro-esophageal reflux disease without esophagitis; R56.9 Unspecified convulsions; G43.909 Migraine, unspecified, not intractable, without status migrainosus; G47.33 Obstructive sleep apnea (adult) (pediatric); Z79.3 Long term (current) use of hormonal contraceptives; Z79.899 Other long term (current) drug therapy; Z88.1 Allergy status to other antibiotic agents; Z88.6 Allergy status to analgesic agent; Z88.5 Allergy status to narcotic agent; Z91.030 Bee allergy status

== ENCOUNTER → 2022-06-20 | Outpatient (CLI) | payer MEDICAID | LOC: M WHC 10:32 | PROVIDERS: ATTEND Nurse Practitioner | DX: Z12.31 Encounter for screening mammogram for malignant neoplasm of breast (principal); N83.291 Other ovarian cyst, right side; R10.2 Pelvic and perineal pain ==

== ENCOUNTER → 2022-07-25 | Outpatient (CLI) | payer OTHER, MEDICAID | LOC: M PLARAD 08:19 | PROVIDERS: ATTEND Nurse Practitioner | DX: R93.89 Abnormal findings on diagnostic imaging of other specified body structures (principal); N83.201 Unspecified ovarian cyst, right side ==

== ENCOUNTER → 2022-08-14 | Outpatient (CLI) | payer MEDICAID, OTHER ==
[2022-08-14 15:09] LABS: CHOLESTEROL RISK RATIO 2.83 (<5); HDL CHOLESTEROL 59.7 MG/DL (>40); LDL CHOLESTEROL 82.7 MG/DL (<100); NON-HDL-C 109.3 MG/DL
== END ==
LOC: M LAB 13:26
PROVIDERS: ATTEND Pediatrics
DX: Z13.220 Encounter for screening for lipoid disorders (principal); E66.9 Obesity, unspecified; Z13.1 Encounter for screening for diabetes mellitus

== ENCOUNTER 2022-08-29 08:53 | Emergency (ER) | payer MEDICAID, OTHER ==
[~2022-08-29] VITALS: Ht 175.3 cm; Wt 120.5 kg
[2022-08-29] MEDS ORDERED: BENZONATATE 100MG CAPSULE PO ONE (11:30)
[2022-08-29] MEDS ORDERED: cefTRIAXone SOD 1 GM in D5W MINI-BAG PLUS 50 ML IV ONE (12:40)
[2022-08-29] MEDS ORDERED: DOXYCYCLINE HYCLATE 100MG TABLET PO ONE (12:40)
[2022-08-29] MEDS ORDERED: BENZ200C70 PO (12:45)
[2022-08-29] MEDS ORDERED: DOXY-443 PO (12:45)
[2022-08-29] MEDS ORDERED: LIDOCAINE 1% SDV 5ML VIAL DILUENT ONE (13:00)
[2022-08-29] MEDS ORDERED: cefTRIAXone SOD 1GM VIAL IM ONE (13:00)
[2022-08-29 13:17] VITALS: BP 121/64
== END 2022-08-29 13:24 | disposition home or self-care (01) ==
LOC: M ED 08:53
DX: J18.9 Pneumonia, unspecified organism (principal); J45.909 Unspecified asthma, uncomplicated; K21.9 Gastro-esophageal reflux disease without esophagitis; G43.909 Migraine, unspecified, not intractable, without status migrainosus; F17.200 Nicotine dependence, unspecified, uncomplicated; R56.9 Unspecified convulsions; Z88.6 Allergy status to analgesic agent; Z88.1 Allergy status to other antibiotic agents; Z88.8 Allergy status to other drugs, medicaments and biological substances; Z91.030 Bee allergy status; Z79.51 Long term (current) use of inhaled steroids; Z79.899 Other long term (current) drug therapy
CPT/HCPCS: 71046; 87486; 87581; 87633; 87798; 96372; 99283; J0696; J1100

== ENCOUNTER 2023-03-10 23:39 | Emergency (ER) | payer OTHER, MEDICAID ==
[~2023-03-10] VITALS: Ht 182.9 cm; Wt 117.2 kg
[2023-03-10 23:39] VITALS: BP 156/76; TEMP 97; O2SAT 98
[~2023-03-10 23:39] MED LIST changes: +BENZ200C70 PO; +DOXY-443 PO
== END 2023-03-11 03:09 | disposition left against medical advice (07) ==
LOC: M ED 23:39
DX: Z53.21 Procedure and treatment not carried out due to patient leaving prior to being seen by health care provider (principal)

== ENCOUNTER 2023-03-26 00:40 | Emergency (ER) | payer OTHER, MEDICAID ==
[~2023-03-26] VITALS: Ht 182.9 cm; Wt 125.9 kg
[2023-03-26 00:40] VITALS: TEMP 96.7
[2023-03-26 01:53] VITALS: BP 135/67; O2SAT 96
== END 2023-03-26 01:55 | disposition home or self-care (01) ==
LOC: M ED 00:40
DX: S09.90XA Unspecified injury of head, initial encounter (principal); W00.1XXA Fall from stairs and steps due to ice and snow, initial encounter; Y92.096 Garden or yard of other non-institutional residence as the place of occurrence of the external cause; Y93.01 Activity, walking, marching and hiking; J45.909 Unspecified asthma, uncomplicated; K21.9 Gastro-esophageal reflux disease without esophagitis; F17.200 Nicotine dependence, unspecified, uncomplicated; Z79.899 Other long term (current) drug therapy

== ENCOUNTER → 2023-06-09 | Outpatient (CLI) | payer OTHER, MEDICAID ==
[2023-06-09 09:08] LABS: ALBUMIN 3.8 G/DL (3.2-5.2); ALKALINE PHOSPHATASE 131 U/L (46-116); ALT/SGPT 49 U/L (7.0-40); AST/SGOT 22 U/L (<34); BILIRUBIN,DIRECT 0.1 MG/DL (<0.4); BILIRUBIN,TOTAL 0.4 MG/DL (0.3-1.2); BLOOD UREA NITROGEN 17 MG/DL (9-23); CREATININE FOR GFR 0.65 MG/DL (0.55-1.30); GLOMERULAR FILTRATION RATE > 60.0 (>58); TOTAL PROTEIN 6.8 G/DL (5.7-8.2)
== END ==
LOC: M LAB 06:40
PROVIDERS: ATTEND Specialist/Technologist Athletic Trainer
DX: M25.369 Other instability, unspecified knee (principal)

== ENCOUNTER → 2023-06-09 | Outpatient (CLI) | payer OTHER, MEDICAID | LOC: M LAB 06:43 | PROVIDERS: ATTEND Psychiatry & Neurology Neurology | DX: G40.319 Generalized idiopathic epilepsy and epileptic syndromes, intractable, without status epilepticus (principal) ==

== ENCOUNTER 2024-05-04 17:20 | Emergency (ER) | payer OTHER ==
[~2024-05-04] VITALS: Ht 175.3 cm; Wt 110.9 kg
[~2024-05-04 17:20] MED LIST changes: +CYAN500T3 PO; +DOXY-441 PO; -DOXY-443 PO; +ELET20TA PO; -NASA10TA2 PO; +NORT50CA PO; +[UNRECOGNIZED DRUG - CODE] PO
[2024-05-04 17:24] VITALS: BP 156/84; TEMP 97.1; O2SAT 98
== END 2024-05-04 20:01 | disposition left against medical advice (07) ==
LOC: EDBD 17:20 → M ED 17:20
DX: Z53.21 Procedure and treatment not carried out due to patient leaving prior to being seen by health care provider (principal)

== ENCOUNTER 2024-05-05 21:20 | Emergency (ER) | payer OTHER ==
[~2024-05-05] VITALS: Ht 175.3 cm; Wt 111.8 kg
[2024-05-06 00:17] VITALS: BP 150/74; TEMP 97.7; O2SAT 95
== END 2024-05-06 00:24 | disposition home or self-care (01) ==
LOC: M ED 21:20
DX: S99.911A Unspecified injury of right ankle, initial encounter (principal); Y92.9 Unspecified place or not applicable; Y93.9 Activity, unspecified; Y99.0 Civilian activity done for income or pay; K21.9 Gastro-esophageal reflux disease without esophagitis; Z88.1 Allergy status to other antibiotic agents; Z88.8 Allergy status to other drugs, medicaments and biological substances; Z91.030 Bee allergy status; Z79.51 Long term (current) use of inhaled steroids; Z79.899 Other long term (current) drug therapy